=== PATIENT | male | born 1990 | race Caucasian/White ===

== ENCOUNTER 2018-12-12 22:01 | Emergency (ER) | payer OTHER ==
[~2018-12-12] VITALS: Ht 172.7 cm; Wt 70.5 kg
[2018-12-12] MEDS ORDERED: CYCLOBENZAPRINE 10 MG TAB PO ONE (23:45)
[2018-12-12] MEDS ORDERED: KETOROLAC 60 MG/2 ML VIAL (J1885) IM ONE (23:45)
[2018-12-13] MEDS ORDERED: CYCL10TA PO ×2 (00:30→01:02)
[2018-12-13] MEDS ORDERED: KETO10TAB PO ×2 (00:30→01:02)
[2018-12-13 00:33] VITALS: BP 116/58
== END 2018-12-13 01:04 | disposition home or self-care (01) ==
LOC: M ED 22:01
DX: S39.012A Strain of muscle, fascia and tendon of lower back, initial encounter (principal); X58.XXXA Exposure to other specified factors, initial encounter; Y92.89 Other specified places as the place of occurrence of the external cause
CPT/HCPCS: 96372; 99283; J1885

== ENCOUNTER → 2020-08-09 | Outpatient (REF) | payer SELFPAY ==
[~2020-08-09] MED LIST: CYCL-707 PO; KETO10TAB PO
== END ==
LOC: M LABCAHC 09:06
PROVIDERS: ATTEND Pediatrics
DX: Z20.828 Contact with and (suspected) exposure to other viral communicable diseases (principal)